=== PATIENT | male | born 1965 | race Caucasian/White ===

== ENCOUNTER 2023-02-25 06:00 | Outpatient (CLI) | payer OTHER, SELFPAY | END 2023-02-25 06:01 | LOC: SOT 03-21 09:24 | PROVIDERS: Visit Provider Student in an Organized Health Care Education/Training Program | DX: Z46.89 Encounter for fitting and adjustment of other specified devices (principal) | CPT/HCPCS: 97760; L3908 ==

== ENCOUNTER → 2023-03-18 09:27 | Outpatient (BNVA) | payer OTHER, SELFPAY | PROVIDERS: Referring Provider Registered Nurse; Visit Provider Student in an Organized Health Care Education/Training Program | DX: G56.03 Carpal tunnel syndrome, bilateral upper limbs | CPT/HCPCS: 73130 ==

== ENCOUNTER 2023-07-21 11:11 | Day surgery (SDC) | payer OTHER, SELFPAY ==
[2023-07-21] VITALS (10 sets, daily range): BP systolic 107–180; BP diastolic 65–96; PULSE 58–81; RESP 16–18; TEMP 36.2; O2SAT 94–99; BMI 24.3
[2023-07-21] MEDS: sodium chloride 0.9% 1,000 ML 30 ML IV (12:09)
[2023-07-21] MEDS: ketorolac 30 mg/mL INJ IVP (12:11)
[2023-07-21] MEDS: acetaminophen 1,000 MG/100 ML PIGGYBACK 400 MG IV (12:12)
--- NOTE | 2023-07-21 12:44 | W.PM.OPSFHP ---
Same Day Surgery H&P Indication for Procedure/HPI DATE OF PROCEDURE: July 21, 2023 CHIEF COMPLAINT/INDICATIONFOR SURGICAL PROCEDURE: Left carpal tunnel syndrome, left cubital tunnel syndrome PREOP DIAGNOSIS: Left carpal tunnel syndrome, left cubital tunnel syndrome PLANNED PROCEDURE: Operation Date: 07/21/23 13:25 Proposed Procedures p Carpal Tunnel Release(Left) - Zechariah Fernández DO s Cubital Tunnel Release with possible ulnar nerve transposition(Left) - Zechariah Fernández DO Medications/Allergies* Home Medications Medication Instructions Recorded Confirmed Type clonidine HCl 0.1 mg tablet 0.1 mg PO TID 03/18/23 07/20/23 History hydrochlorothiazide 25 mg tablet 25 mg PO DAILY 03/18/23 07/20/23 History losartan 100 mg tablet 100 mg PO DAILY 03/18/23 07/21/23 History multivitamin 1 tab PO DAILY 03/18/23 07/20/23 History pantoprazole 20 mg tablet,delayed 20 mg PO DAILY 03/18/23 07/20/23 History release potassium 99 mg tablet 99 mg PO DAILY 03/18/23 07/20/23 History Allergies/Adverse Reactions Allergy/AdvReac Type Severity Reaction Status Date / Time No Known Allergies Allergy Verified 07/21/23 11:44 Current Medications: Generic Name Dose Route Start Last Admin Trade Name Freq PRN Reason Stop Dose Admin Sodium Chloride 1,000 mls @ 30 mls/hr 07/21/23 12:00 07/21/23 12:09 Sodium Chloride 0.9% IV 07/22/23 11:59 30 mls/hr .Q24H ARI Administration Pertinent History/Comorbid Conditions* Social History Smoking and tobacco/nicotine status: current every day tobacco/nicotine user Alcohol intake: current Alcohol intake frequency: 3 or more drinks per day Pertinent Exam Findings alert, oriented x 3, operative site marked and procedure specific exam findings Left upper extremity: Positive Tinel's over the carpal tunnel and cubital tunnel. Recommendations Surgery/Procedure today Other Plans: Plan to proceed to the OR today with left carpal tunnel release and left cubital tunnel release with possible ulnar nerve transposition. Coding Level of Care Code Acute Code for Shahid Fwd
[2023-07-21] MEDS: scopolamine 1.5 Patch 1 PATCH TRANSDERMA (13:06)
--- NOTE | 2023-07-21 13:12 | ANES.PREANE2 ---
Pre-Anesthetic Assessment Height/Weight: Height 1.78 m Weight 77.111 kg Temp Pulse Resp BP Pulse Ox O2 Del Method 97.2 F L 81 18 180/88 97 Room Air 07/21/23 11:45 07/21/23 11:45 07/21/23 11:45 07/21/23 11:45 07/21/23 11:45 07/21/23 11:52 Preop Diagnosis: Left carpal tunnel syndrome, left cubital tunnel syndrome Operation Date: 07/21/23 13:25 Proposed Procedures p Carpal Tunnel Release(Left) - Zechariah Pradeep, DO s Cubital Tunnel Release with possible ulnar nerve transposition(Left) - Zechariah Fernández, DO Familial anesthetic complications: none Was Beta Dorian taken within 24 hours: N/A Was Clonidine taken within 24 hours: Yes Last intake: Intake Last Liquid Date 07/21/23 Last Liquid Time 08:00 Last Solid Date 07/20/23 Last Solid Time 18:00 Social Alcohol and Tobacco Exam alert, oriented x 3 and regular rate & rhythm Airway Submandibular: within normal limits Cervical ROM: within normal limits Mallampati: Class II Dentition: false CV/HEM Hypertension GI Gastroesophageal Reflux Disease Neuropsych Neuropathy Anesthetic Plan ASA status: 3 Anesthesia: General Medications/Allergies Home Medications Medication Instructions Recorded Confirmed Last Taken Type bilateral hand night splints #1 ea 03/18/23 06/16/23 Unknown Rx clonidine HCl 0.1 mg tablet 0.1 mg PO TID 03/18/23 07/20/23 07/20/23 History hydrochlorothiazide 25 mg tablet 25 mg PO DAILY 03/18/23 07/20/23 07/20/23 History losartan 100 mg tablet 100 mg PO DAILY 03/18/23 07/21/23 07/21/23 07:00 History multivitamin 1 tab PO DAILY 03/18/23 07/20/23 07/20/23 History pantoprazole 20 mg tablet,delayed 20 mg PO DAILY 03/18/23 07/20/23 07/17/23 History release potassium 99 mg tablet 99 mg PO DAILY 03/18/23 07/20/23 07/20/23 History Allergies Allergy/AdvReac Type Severity Reaction Status Date / Time No Known Allergies Allergy Verified 07/21/23 11:44 Current Medications Generic Name Dose Route Start Last Admin Trade Name Freq PRN Reason Stop Dose Admin Sodium Chloride 1,000 mls @ 30 mls/hr 07/21/23 12:00 07/21/23 12:09 Sodium Chloride 0.9% IV 07/22/23 11:59 30 mls/hr .Q24H ARI Administration PFSH Anesthesia Social History Smoking and tobacco/nicotine status: current every day tobacco/nicotine user Alcohol intake: current Alcohol intake frequency: 3 or more drinks per day Data Anesthesia Cardiac Studies: No Data to Display
[2023-07-21] MEDS: ceFAZolin 2,000 MG in sodium chloride 0.9% (plus) 50 ML 100 MG IV (13:45)
[2023-07-21] MEDS: ROPivacaine 0.5% SDV 30 mL 150 MG INJECTION (14:03)
[2023-07-21] MEDS: lidocaine-epi 1% 20 mL INJ INJECTION (14:03)
--- NOTE | 2023-07-21 14:39 | P.BOP_ITS ---
Date of Procedure: 07/21/2023 Surgeon: Zechariah Fernández DO Sales And Merchandising Representative(s): None Procedure(s) performed: Left carpal tunnel release Left cubital tunnel release (ulnar nerve decompression at the elbow) Findings of the procedure(s): Patient found to have left carpal tunnel syndrome and left cubital tunnel procedure went as planned without complications Estimated blood loss: 10 mL Specimen(s) removed: None Post-operative diagnosis: Left carpal tunnel syndrome, left cubital tunnel syndrome
--- NOTE | 2023-07-21 14:40 | PM.OP ---
Operative Report Date of procedure: July 21, 2023 Surgeon: Zechariah Fernández DO Photographic Double: JINNY Young Procedure: Preoperative diagnosis: Left carpal tunnel syndrome, left cubital tunnel syndrome Postop Diagnosis: Same Procedure done: Left carpal tunnel release Left?cubital?tunnel tunnel release (ulnar nerve decompression at elbow) Surgeon: Zechariah Fernández DO Estimated blood loss: 10 mL Tourniquet? 22 minutes IV fluids: 700 mL Complications: None Findings: See operative report narrative Condition: stable Disposition: same day Brief History: Patient's been seen and worked up in the outpatient setting and findings consistent with preoperative diagnosis.? Patient has Left carpal tunnel syndrome as well as Left?cubital?tunnel syndrome which has been worked up in the outpatient setting has physical exam findings consistent with this as well as confirmatory nerve conduction/EMG nerve conduction study consistent with diagnosis.? Patient's failed conservative treatment.? As result through shared decision making agreed to proceed with? Left carpal tunnel and Left?cubital?tunnel release we talked about treatment options as far as nonoperative and operative intervention.? Understands risk benefits complication alternatives surgical nonsurgical treatment options.? Understanding his risks he agrees to proceed with surgical intervention. Understanding these risks he agrees to proceed with surgery.? Consent obtained in office. Procedure: Patient seen evaluate in the preoperative holding area.? Consent was reviewed and signed with patient.? Correct extremity marked.? Patient seen evaluated by anesthesia department once cleared for surgery was then taken back to the operative suite placed in supine position all bony prominences well-padded patient properly secured to bed.? Left upper extremity placed onto armboard.? Nonsterile tourniquet applied Left upper arm.? Patient then underwent anesthesia per the anesthesia department.? Patient's Left upper extremity was then prepped and draped in standard orthopedic fashion.? Final timeout performed.? Patient received appropriate preoperative antibiotics. Esmarch was used exsanguinate the Left upper extremity.? Tourniquet was insufflated to 250 mmHg. I started with the carpal tunnel release first.? I made a standard open carpal tunnel release starting with the distal most extent in the palm at the Torres's cardinal line and the incision line was made in line with the fourth ray and ended just distal to the wrist crease.? Sharp scalpel incision was made through skin and subcutaneous tissue I then utilizing self retainer then began to dissect with dissection scissors split longitudinally the palmar fascia.? Next I then utilizing my assistant director of plant operations Esther retractors subsequently utilizing scalpel feathered through the palmaris brevis as well as through the transverse carpal ligament distally.? Once I encountered the floor of the transverse carpal ligament and entered into the carpal tunnel I then switched to dissection scissors.? Carefully released the distal extent of the transverse carpal ligament to the palmar fat.? Care was to protect the recurrent branch and not injured this during this part of the case.? Next I then placed a [place] underneath the transverse carpal ligament proximally to protect the nerve in the carpal tunnel contents.? And then I subsequently under loupe magnification utilize my dissection scissors to release the transverse carpal ligament into the antebrachial fascia under direct visualization with care to keep my scissors with a curved ulnarly away from the palmar cutaneous branch.? The transverse carpal was then completely decompressed proximally and a [place] was then placed both distally and proximally throughout the carpal tunnel and had complete decompression of the nerve.? The nerve did appear to have hourglass shape as it went through the carpal tunnel.? With significant irritation noted around the nerve.? No masses were noted within the contents of the carpal tunnel.? This completed the carpal tunnel release and then I subsequently irrigated the wound bed and placed a wet Ray-Sid into the incision for later closure. Next marked out the landmarks of the Left elbow of the medial epicondyle and olecranon and made a curvilinear incision following the course of the ulnar nerve at the medial aspect of the elbow.? Sharp scalpel incision was made through skin and subcutaneous tissue.? Next I switched to Littler dissection scissors and spread in plane of the medial antebrachial cutaneous nerve branching which was protected throughout this part of the dissection.? Then I directly came down over the fascia and identified the 2 heads of the FCU fascia and split this Left in the middle and subsequently identified my ulnar nerve distally.? This was then completely released distally under direct visualization and loupe magnification.? Once the nerve was then identified I then subsequently tracked this proximally and released this through Ribera's ligament as well as complete decompression of the nerve proximally all the way past the intermuscular septum.? The nerve was completely released and decompressed both proximally and distally.? Ulnar nerve neurolysis performed and completed both proximally and distally with dissection scissors.? I then took the elbow through range of motion and there was no instability or subluxating of the ulnar nerve.? This completed?cubital?tunnel release.? ?Next the wound bed was thoroughly irrigated.? Tourniquet was deflated.? Hemostasis was satisfactory at the?cubital?tunnel release surgery site. I then inspected the carpal tunnel incision and this was found to have satisfactory hemostasis and all this was maintained through bipolar electrocautery.? At this point time I sequentially closed?cubital?tunnel site with 3-0 Vicryl suture in a running horizontal mattress nylon stitch.? ? The carpal tunnel release surgery was then closed in standard interrupted mattress fashion.? Dressing was Xeroform 4 x 4's ABD Curlex soft roll and an Sree wrap has a bulky soft dressing. Patient was then awakened from anesthesia and taken to PACU in stable condition. Disposition: Patient taken to PACU in stable condition recovering well.? Patient will receive appropriate discharge instructions as well as pain medication postoperatively.? We will follow-up with me in the office in 2 weeks.? Patient understands agrees with current plan.? All questions answered.? He understands if any questions or concerns and contact the office for follow-up appointment..
--- NOTE | 2023-07-21 15:54 | ANE.PACU2 ---
Inpatient post-anesthesia follow up: Airway intact: Yes Vital signs: Temperature 97.1 F Pulse Rate 75 Respiratory Rate 18 Blood Pressure 159/92 Pulse Oximetry 94 Oxygen Delivery Me thod Room Air Oxygen Flow Rate 6 Fraction of Inspir ed Oxygen Hydration adequate: Yes Nausea and vomiting: No Pain level: 3 Mental status: Baseline
== END 2023-07-21 16:00 | disposition home or self-care (01) ==
PROVIDERS: Visit Provider Student in an Organized Health Care Education/Training Program
PROC: (CPT 64721; principal; 2023-07-21 13:25)
PROC: (CPT 64718; 2023-07-21 13:25)
DX: G56.02 Carpal tunnel syndrome, left upper limb (principal); G56.22 Lesion of ulnar nerve, left upper limb; I10 Essential (primary) hypertension; K21.9 Gastro-esophageal reflux disease without esophagitis; F17.200 Nicotine dependence, unspecified, uncomplicated
CPT/HCPCS: 64718; 64721; J0131; J0690; J1100; J1885; J2405; J2704; J2795; J3010; J7030

== ENCOUNTER 2023-09-14 07:48 | Day surgery (SDC) | payer OTHER, SELFPAY ==
[2023-09-14] VITALS (9 sets, daily range): BP systolic 105–160; BP diastolic 60–105; PULSE 54–81; RESP 14–16; TEMP 36.1–36.7; O2SAT 96–100; BMI 25.4
--- NOTE | 2023-09-14 08:25 | W.PM.OPSFHP ---
Same Day Surgery H&P Indication for Procedure/HPI DATE OF PROCEDURE: September 14, 2023 CHIEF COMPLAINT/INDICATIONFOR SURGICAL PROCEDURE: Right carpal tunnel syndrome, right cubital tunnel syndrome PREOP DIAGNOSIS: Right carpal tunnel syndrome right cubital tunnel syndrome PLANNED PROCEDURE: Operation Date: 09/14/23 09:20 Proposed Procedures p Carpal Tunnel Release(Right) - Zechariah Fernández DO s Cubital Tunnel Release WITH POSSIBLE ULNAR NERVE TRANSPOSITION(Right) - Zechariah Fernández DO Medications/Allergies* Home Medications Medication Instructions Recorded Confirmed Type clonidine HCl 0.1 mg tablet 0.1 mg PO TID 03/18/23 09/14/23 History hydrochlorothiazide 25 mg tablet 25 mg PO DAILY 03/18/23 09/13/23 History losartan 100 mg tablet 100 mg PO DAILY 03/18/23 09/13/23 History multivitamin 1 tab PO DAILY 03/18/23 09/13/23 History pantoprazole 20 mg tablet,delayed 20 mg PO DAILY 03/18/23 09/13/23 History release potassium 99 mg tablet 99 mg PO DAILY 03/18/23 09/13/23 History Allergies/Adverse Reactions Allergy/AdvReac Type Severity Reaction Status Date / Time No Known Allergies Allergy Verified 09/13/23 08:51 Pertinent History/Comorbid Conditions* Social History Smoking and tobacco/nicotine status: current every day tobacco/nicotine user Alcohol intake: current Alcohol intake frequency: 3 or more drinks per day Pertinent Exam Findings alert, oriented x 3, operative site marked and procedure specific exam findings Right hand examination positive Tinel's over the carpal tunnel as well as positive Tinel's over the cubital tunnel. Refer to physical exam patient note dated on 08/05/2023 for full examination. Patient does have some atrophy noted about the thenar musculature as well as intrinsic Recommendations Surgery/Procedure today Other Plans: Plan to proceed to the OR today for Right carpal tunnel Release with Right cubital tunnel release with possible ulnar nerve transposition Coding Level of Care Code Acute Code for Shahid Mitchell
--- NOTE | 2023-09-14 08:32 | P.ANESASSM_ITS ---
Pre-Anesthetic Assessment Height/Weight: Height 1.73 m Weight 76 kg Temp Pulse Resp BP Pulse Ox O2 Del Method 98.1 F 76 16 143/84 96 Room Air 09/14/23 08:14 09/14/23 08:14 09/14/23 08:14 09/14/23 08:14 09/14/23 08:14 09/14/23 08:14 Preop Diagnosis: Right carpal tunnel syndrome right cubital tunnel syndrome Operation Date: 09/14/23 09:20 Proposed Procedures p Carpal Tunnel Release(Right) - Zechariah Fernández DO s Cubital Tunnel Release WITH POSSIBLE ULNAR NERVE TRANSPOSITION(Right) - Zechariah Fernández DO Familial anesthetic complications: None Was Beta Dorian taken within 24 hours: N/A Was Clonidine taken within 24 hours: Yes Last intake: Intake Last Liquid Date 09/13/23 Last Liquid Time 19:00 Last Solid Date 09/13/23 Last Solid Time 19:00 Social Alcohol and Tobacco Exam alert, oriented x 3, clear to auscultation bilaterally and regular rate & rhythm Airway Mallampati: Class I Dentition: false CV/HEM Hypertension GI Gastroesophageal Reflux Disease Neuropsych essential tremor Anesthetic Plan ASA status: 3 Anesthesia: MAC Risk of > 500 ml blood loss (7ml/kg in children): No Medications/Allergies Home Medications Medication Instructions Recorded Confirmed Last Taken Type bilateral hand night splints #1 ea 03/18/23 08/05/23 Unknown Rx clonidine HCl 0.1 mg tablet 0.1 mg PO TID 03/18/23 09/14/23 09/14/23 History hydrochlorothiazide 25 mg tablet 25 mg PO DAILY 03/18/23 09/13/23 09/13/23 History losartan 100 mg tablet 100 mg PO DAILY 03/18/23 09/13/23 09/13/23 History multivitamin 1 tab PO DAILY 03/18/23 09/13/23 07/20/23 History pantoprazole 20 mg tablet,delayed 20 mg PO DAILY 03/18/23 09/13/23 09/13/23 History release potassium 99 mg tablet 99 mg PO DAILY 03/18/23 09/13/23 09/13/23 History Allergies Allergy/AdvReac Type Severity Reaction Status Date / Time No Known Allergies Allergy Verified 09/13/23 08:51 [facility] Anesthesia Social History Smoking and tobacco/nicotine status: current every day tobacco/nicotine user Alcohol intake: current Alcohol intake frequency: 3 or more drinks per day Data Anesthesia Cardiac Studies: No Data to Display
[2023-09-14] MEDS: scopolamine 1.5 Patch 1 PATCH TRANSDERMA (08:41)
[2023-09-14] MEDS: ketorolac 30 mg/mL INJ IVP (08:41)
[2023-09-14] MEDS: sodium chloride 0.9% 1,000 ML 30 ML IV (08:41)
[2023-09-14] MEDS: acetaminophen 1,000 MG/100 ML PIGGYBACK 400 MG IV (08:42)
[2023-09-14] MEDS: ceFAZolin 2,000 MG in sodium chloride 0.9% (plus) 50 ML 100 MG IV (09:15)
[2023-09-14] MEDS: ROPivacaine 0.5% SDV 30 mL 50 MG INJECTION (09:41)
[2023-09-14] MEDS: lidocaine-epi 1% 20 mL INJ 10 ML INJECTION (09:41)
--- NOTE | 2023-09-14 10:08 | P.OP_ITS ---
Operative Report Date of procedure: September 14, 2023 Surgeon: Zechariah Fernández DO Procedure: Preoperative diagnosis: Right carpal tunnel, right cubital tunnel Postop Diagnosis: Same Procedure done: Right carpal tunnel release Right?cubital tunnel tunnel release (ulnar nerve decompression at elbow) Surgeon: Zechariah Fernández DO Estimated blood loss: 5 mL Tourniquet? 25 minutes IV fluids: 500 mL Complications: None Findings: See operative report narrative Condition: stable Disposition: same day Brief History: Patient's been seen and worked up in the outpatient setting and findings consistent with preoperative diagnosis.? Patient has right carpal tunnel syndrome as well as right?cubital tunnel syndrome which has been worked up in the outpatient setting has physical exam findings consistent with this as well as confirmatory nerve conduction/EMG nerve conduction study consistent with diagnosis.? Patient's failed conservative treatment.? As result through shared decision making agreed to proceed with? right carpal tunnel and right?cubital tunnel release we talked about treatment options as far as nonoperative and operative intervention.? Understands risk benefits complication alternatives s urgical nonsurgical treatment options.? Understanding his risks he agrees to proceed with surgical intervention. Understanding these risks he agrees to proceed with surgery.? Consent obtained in office. Procedure: Patient seen evaluate in the preoperative holding area.? Consent was reviewed and signed with patient.? Correct extremity marked.? Patient seen evaluated by anesthesia department once cleared for surgery was then taken back to the operative suite placed in supine position all bony prominences well-padded patient properly secured to bed.? right upper extremity placed onto armboard.? Nonsterile tourniquet applied right upper arm.? Patient then underwent anesthesia per the anesthesia department.? Patient's right upper extremity was then prepped and draped in standard orthopedic fashion.? Final timeout performed.? Patient received appropriate preoperative antibiotics. Esmarch was used exsanguinate the right upper extremity.? Tourniquet was insufflated to 250 mmHg. I started with the carpal tunnel release first.? I made a standard open carpal tunnel release starting with the distal most extent in the palm at the Torres's cardinal line and the incision line was made in line with the fourth ray and ended just distal to the wrist crease.? Sharp scalpel incision was made through skin and subcutaneous tissue I then utilizing self retainer then began to dissect with dissection scissors split longitudinally the palmar fascia.? Next I then utilizing my assistant director of public works Esther retractors subsequently utilizing scalpel feathered through the palmaris brevis as well as through the transverse carpal ligament distally.? Once I encountered the floor of the transverse carpal ligament and entered into the carpal tunnel I then switched to dissection scissors.? Carefully released the distal extent of the transverse carpal ligament to the palmar fat.? Care was to protect the recurrent branch and not injured this during this part of the case.? Next I then placed a [place] undernea th the transverse carpal ligament proximally to protect the nerve in the carpal tunnel contents.? And then I subsequently under loupe magnification utilize my dissection scissors to release the transverse carpal ligament into the antebrachial fascia under direct visualization with care to keep my scissors with a curved ulnarly away from the palmar cutaneous branch.? The transverse carpal was then completely decompressed proximally and a [place] was then placed both distally and proximally throughout the carpal tunnel and had complete decompression of the nerve.? The nerve did appear to have hourglass shape as it went through the carpal tunnel.? With significant irritation noted around the nerve.? No masses were noted within the contents of the carpal tunnel.? This completed the carpal tunnel release and then I subsequently irrigated the wound bed and placed a wet Ray-Sid into the incision for later closure. Next marked out the landmarks of the right elbow of the medial epicondyle and o lecranon and made a curvilinear incision following the course of the ulnar nerve at the medial aspect of the elbow.? Sharp scalpel incision was made through skin and subcutaneous tissue.? Next I switched to Littler dissection scissors and spread in plane of the medial antebrachial cutaneous nerve branching which was protected throughout this part of the dissection.? Then I directly came down over the fascia and identified the 2 heads of the FCU fascia and split this right in the middle and subsequently identified my ulnar nerve distally.? This was then completely released distally under direct visualization and loupe magnification.? Once the nerve was then identified I then subsequently tracked this proximally and released this through Ribera's ligament as well as complete decompression of the nerve proximally all the way past the intermuscular septum.? The nerve was completely released and decompressed both proximally and distally.? Ulnar nerve neurolysis performed and completed both proximally and distally with dissection scissors.? I then took the elbow through range of motion and there was no instability or subluxating of the ulnar nerve.? This completed?cubital tunnel release.? ?Next the wound bed was thoroughly irrigated.? Tourniquet was deflated.? Hemostasis was satisfactory at the?cubital tunnel release surgery site. I then inspected the carpal tunnel incision and this was found to have satisfactory hemostasis and all this was maintained through bipolar electrocautery.? At this point time I sequentially closed?cubital tunnel site with 3-0 Vicryl suture in a running horizontal mattress nylon stitch.? ? The carpal tunnel release surgery was then closed in standard interrupted mattress fashion.? Dressing was Xeroform 4 x 4's ABD Curlex soft roll and an Sree wrap has a bulky soft dressing. Patient was then awakened from anesthesia and taken to PACU in stable condition. Disposition: Patient taken to PACU in stable condition recovering well.? Patient will receive appropriate discharge instructions as well as pain medication postoperatively.? We will follow-up with me in the office in 2 weeks.? Patient understands agrees with current plan.? All questions answered.? He understands if any questions or concerns and contact the office for follow-up appointment..
--- NOTE | 2023-09-14 10:27 | W.PM.BPON ---
Date of Procedure: [September 14, 2023] Surgeon: [Dr. Fernández DO] Java Front End Web Developer(s): [Jose Alfredo Fernández PA-C] Procedure(s) performed: [Right carpal tunnel release and right cubital tunnel release] Findings of the procedure(s): [Right carpal tunnel syndrome and right cubital tunnel syndrome] Estimated blood loss: [5 ml] Specimen(s) removed: [n/a] Post-operative diagnosis: [Right carpal tunnel syndrome and right cubital tunnel syndrome]
--- NOTE | 2023-09-14 10:30 | PM.PACU ---
PACU note Narrative: Patient is a 57-year-old male that just underwent a right carpal tunnel release and right cubital tunnel release. Patient transferred to PACU in stable condition. Pain is well controlled. Dressing on hand is dry and in place. Patient's fingers are warm and well-perfused. Patient can wiggle fingers. normal cap refill under 2 seconds. Patient has normal elbow range of motion. Unable to assess sensation due to residual localized anesthetic. Exam: awake Disposition: discharged
--- NOTE | 2023-09-14 11:55 | ANE.PACU2 ---
Inpatient post-anesthesia follow up: Airway intact: Yes Vital signs: Temperature 98.0 F Pulse Rate 63 Respiratory Rate 16 Blood Pressure 137/84 Pulse Oximetry 96 Oxygen Delivery Me thod Room Air Oxygen Flow Rate 6 Fraction of Inspir ed Oxygen Hydration adequate: Yes Nausea and vomiting: No Pain level: 1 Mental status: Baseline
== END 2023-09-14 11:55 | disposition home or self-care (01) ==
PROVIDERS: Visit Provider Student in an Organized Health Care Education/Training Program
PROC: (CPT 64721; principal; 2023-09-14 09:15)
PROC: (CPT 64718; 2023-09-14 09:15)
DX: G56.01 Carpal tunnel syndrome, right upper limb (principal); G56.21 Lesion of ulnar nerve, right upper limb; F17.200 Nicotine dependence, unspecified, uncomplicated; I10 Essential (primary) hypertension; K21.9 Gastro-esophageal reflux disease without esophagitis
CPT/HCPCS: 64718; 64721; J0131; J0690; J1885; J2795; J7030